=== PATIENT | female | born 1945 | race Caucasian/White ===

== ENCOUNTER → 2017-09-11 | Day surgery (SDC) | payer MEDICARE, BC ==
[~2017-09-11] MED LIST: Heparin 1,000 UNITS/ML VIAL ONE
--- NOTE | 2017-09-11 14:45 | SPC ---
SONOGRAPHIC GUIDED LEFT UPPER EXTREMITY PICC PLACEMENT: History: Mastoiditis. FINDINGS: After explaining the procedure and answering all questions, the left upper extremity was prepped and draped in the usual sterile fashion. Sterile technique and buffered local anesthesia, sonographic layla dance, and a 22 gauge needle were used to carefully access the left cephalic vein. Standard technique was then used to place the tip of 5 [place] single lumen PICC so that the tip lies at the level of th e cavoatrial junction. The catheter was flushed and secured externally. The patient tolerated the pro cedure well and was dismissed in good condition. Fluoro time equals 0.1 minute. IMPRESSION: Technically successful left upper extremity PICC placement. Catheter is now ready for use. POS: [facility]
== END ==
LOC: SPEC 12:19
PROVIDERS: ATTEND Internal Medicine Infectious Disease
PROC: 02HV33Z Insertion of Infusion Device into Superior Vena Cava, Percutaneous Approach (ICD-10-PCS; principal; 2017-09-11)
DX: H70.10 Chronic mastoiditis, unspecified ear (principal)
CPT/HCPCS: 36569; C1751; J1644